=== PATIENT | female | born 1950 | race Caucasian/White ===

== ENCOUNTER 2017-09-13 23:49 | Emergency (ER) | payer OTHER ==
[~2017-09-13] VITALS: Ht 157.5 cm; Wt 85.3 kg
[~2017-09-13 23:49] MED LIST: AMLODIPINE BES10 MG PO; ATIVAN1 MG PO; CAPTOPRIL PO; CARAFATE1 GM PO; CLARITIN10 MG PO; COLACE100 MG PO; DESYREL DIVIDO150 MG PO; DICYCLOMINE HCL10 MG PO; DURAGESIC50 MCG/HR; ECO81 PO; GLU500 PO; HCTZ PO; IMODIUM2 MG PO; LAC PO; MAC100 PO; METFORMIN HCL500 MG PO; METOPROLOL TART25 M1 PO; MOTRIN800 MG PO; NEURONTIN600 MG PO; NORCO1 TA2 PO; PERCOCET1 TA2 PO; PRA20 PO; PREDNISONE20 MG; PRILOSEC40 MG PO; ROBAXIN-750750 MG PO; TOUJEO300 U/ML SC; WELLBUTRIN XL300 M1 PO; XANAX0.5 MG PO; ZANAFLEX4 MG PO
[2017-09-13 23:53] VITALS: Ht 157.5 cm; Wt 85.3 kg
[2017-09-14 00:30] LABS: PLATELET COUNT 272 x10^3mcL (130-400)
[2017-09-14 00:32] LABS: RED CELL DISTRIBUTION WIDTH 14.9 % (11.5-14.5)
[2017-09-14 00:40] LABS: CALCIUM 8.4 mg/dL (8.5-10.1); CARBON DIOXIDE 26.2 mmol/L (21-32); CHLORIDE SERUM 101 mmol/L (98-107); CREATININE SERUM 0.9 mg/dL (0.6-1.0); GFR1 > 60 mL/min; GLUCOSE SERUM 163 mg/dL (74-106); POTASSIUM SERUM 3.6 mmol/L (3.5-5.1); SODIUM SERUM 138 mmol/L (136-145)
[2017-09-14 00:45] LABS: ALBUMIN 3.7 g/dL (3.4-5.0); ALKALINE PHOSPHATASE 105 U/L (46-116); ALT/SGPT 42 U/L (14-59); AST/SGOT 36 U/L (15-37); BILIRUBIN TOTAL 0.2 mg/dL (0.20-1.00); CHOLESTEROL 159 mg/dL (<200); HDL CHOLESTEROL 40 mg/dL (40-60); PHOSPHOROUS 3.6 mg/dL (2.5-4.9); TOTAL PROTEIN, SERUM 7.7 g/dL (6.4-8.2); URIC ACID 3.2 mg/dL (2.6-6.0)
[2017-09-14 01:26] VITALS: BP 122/74
== END 2017-09-14 01:26 | disposition home or self-care (01) ==
LOC: ED 23:49
PROVIDERS: Emergency Medicine
DX: R42 Dizziness and giddiness (principal); I10 Essential (primary) hypertension; E11.9 Type 2 diabetes mellitus without complications; Z88.2 Allergy status to sulfonamides; Z88.5 Allergy status to narcotic agent; Z88.6 Allergy status to analgesic agent
CPT/HCPCS: 36415; 83880; Q0092

== ENCOUNTER 2018-11-04 10:58 | Emergency (ER) | payer OTHER ==
[~2018-11-04] VITALS: Ht 157.5 cm; Wt 87.5 kg
[2018-11-04 11:03] VITALS: Ht 157.5 cm; Wt 87.5 kg
[2018-11-04 12:34] VITALS: BP 106/67
== END 2018-11-04 12:34 | disposition home or self-care (01) ==
LOC: ED 10:58
DX: M54.12 Radiculopathy, cervical region (principal); M25.511 Pain in right shoulder; I10 Essential (primary) hypertension; F41.9 Anxiety disorder, unspecified; E11.9 Type 2 diabetes mellitus without complications; Z88.2 Allergy status to sulfonamides; Z88.5 Allergy status to narcotic agent; Z98.890 Other specified postprocedural states
CPT/HCPCS: 82962; J1885

== ENCOUNTER 2019-06-11 11:45 | Emergency (ER) | payer OTHER ==
[~2019-06-11] VITALS: Ht 157.5 cm; Wt 88.5 kg
[2019-06-11 13:08] VITALS: BP 129/87
== END 2019-06-11 13:08 | disposition home or self-care (01) ==
LOC: ED 11:45
DX: S46.912A Strain of unspecified muscle, fascia and tendon at shoulder and upper arm level, left arm, initial encounter (principal); I10 Essential (primary) hypertension; E11.9 Type 2 diabetes mellitus without complications; F41.9 Anxiety disorder, unspecified; Z88.2 Allergy status to sulfonamides; Z88.5 Allergy status to narcotic agent; Z98.890 Other specified postprocedural states; X58.XXXA Exposure to other specified factors, initial encounter; Y93.89 Activity, other specified; Y92.89 Other specified places as the place of occurrence of the external cause; Y99.8 Other external cause status
CPT/HCPCS: J1885